=== PATIENT | female | born 1950 | race Caucasian/White ===

== ENCOUNTER → 2018-04-11 | Outpatient (CLI) | payer MEDICARE, OTHER ==
[~2018-04-11] MED LIST: LIDOCAINE 1%, 20ML ONE; LIDOCAINE 1%-EPI 1:100K, 20ML ONE; NONE PER PT; SODIUM BICARBONATE 4.0%, 5ML ONE
== END | disposition home or self-care (01) ==
LOC: CFH 14:59
PROVIDERS: ATTEND Surgery
DX: D05.11 Intraductal carcinoma in situ of right breast (principal)
CPT/HCPCS: 19285; 77065; J3490

== ENCOUNTER 2018-04-17 10:03 | Day surgery (SDC) | payer MEDICARE, OTHER ==
[~2018-04-17] VITALS: Ht 165.1 cm; Wt 60.8 kg
[~2018-04-17 10:03] MED LIST changes: -LIDOCAINE 1%, 20ML ONE; -LIDOCAINE 1%-EPI 1:100K, 20ML ONE; -SODIUM BICARBONATE 4.0%, 5ML ONE
[2018-04-17] MEDS ORDERED: LACTATED RINGERS 1,000 ML IV SCH (10:37)
[2018-04-17 10:38] VITALS: BP 100/69
[2018-04-17] MEDS ORDERED: GABAPENTIN 300 MG CAPSULE PO ONE (11:00)
[2018-04-17] MEDS ORDERED: SCOPOLAMINE PATCH, 1.5MG PATCH.TD72 TD ONE (11:00)
[2018-04-17] MEDS ORDERED: ONDANSETRON 2MG/ML, 2ML IVPush ONE (11:00)
[2018-04-17] MEDS ORDERED: ACETAMINOPHEN 500 MG TABLET PO ONE (11:00)
[2018-04-17] MEDS ORDERED: FENTANYL PF 250 MCG/5ML ONE (11:23)
[2018-04-17] MEDS ORDERED: MIDAZOLAM 1 MG/ML, 2ML ONE (11:23)
[2018-04-17] MEDS ORDERED: BUPIVACAINE/PF-EPI 0.5% 1:200K ONE (11:42)
[2018-04-17] MEDS ORDERED: PROMETHAZINE 25 MG/ML, 1ML ONE (12:47)
[2018-04-17] MEDS ORDERED: OXYcodone 5 MG/5 ML ORAL.SOL UDC PO PRN (13:30)
[2018-04-17] MEDS ORDERED: FENTANYL PF 100 MCG/2ML IV PRN (13:30)
[2018-04-17] MEDS ORDERED: PROMETHAZINE 25 MG/ML, 1ML IV PRN (13:30)
[2018-04-17] MEDS ORDERED: HYDROmorphone 2 MG/ML, 1ML IVPush PRN (13:30)
[2018-04-17] MEDS ORDERED: ONDANSETRON 2MG/ML, 2ML ONE (15:13)
[2018-04-17] MEDS ORDERED: CEFAZOLIN 1,000 MG ONE (15:13)
[2018-04-17] MEDS ORDERED: SUCCINYLCHOLINE 20 MG/ML, 10ML ONE (15:13)
[2018-04-17] MEDS ORDERED: PROPOFOL 10 MG/ML, 20ML ONE (15:13)
[2018-04-17] MEDS ORDERED: DEXAMETHASONE 4 MG/ML, 1ML ONE (15:13)
[2018-04-17] MEDS ORDERED: ROCURONIUM 10MG/ML,5ML ONE (15:13)
== END 2018-04-17 14:30 | disposition home or self-care (01) ==
LOC: OUT 10:03
PROVIDERS: ATTEND Surgery
DX: D05.11 Intraductal carcinoma in situ of right breast (principal); Z72.89 Other problems related to lifestyle
CPT/HCPCS: 19125; 76098; 88307; 88341; 88342; 88360; 93005; J0330; J0690; J1100; J2250; J2405; J2704; J3010; J7120

== ENCOUNTER → 2018-05-14 | Outpatient (CLI) | payer MEDICARE, OTHER | END | disposition home or self-care (01) | LOC: ROC 11:08 | PROVIDERS: ATTEND Radiology Radiation Oncology | DX: D05.11 Intraductal carcinoma in situ of right breast (principal) | CPT/HCPCS: G0463 ==

== ENCOUNTER → 2018-07-11 | Outpatient (CLI) | payer MEDICARE, OTHER | END | disposition home or self-care (01) | LOC: EDSTATUS 07-03 08:49 → ROC 07:26 | PROVIDERS: ATTEND Radiology Radiation Oncology | DX: Z08 Encounter for follow-up examination after completed treatment for malignant neoplasm (principal); Z85.3 Personal history of malignant neoplasm of breast | CPT/HCPCS: G0463 ==

== ENCOUNTER → 2018-08-04 | Outpatient (CLI) | payer MEDICARE, OTHER | END | disposition home or self-care (01) | LOC: CFH 08:28 | PROVIDERS: ATTEND Internal Medicine Hematology & Oncology | DX: M85.89 Other specified disorders of bone density and structure, multiple sites (principal); N95.9 Unspecified menopausal and perimenopausal disorder | CPT/HCPCS: 77080 ==